=== PATIENT | female | born 1950 | race Caucasian/White ===

== ENCOUNTER → 2018-01-03 | Day surgery (SDC) | payer OTHER ==
[~2018-01-03] MED LIST: ASPIR 8181 MG PO; ATORVASTATIN CA20 MG PO; CEFADROXIL500 MG PO; LISINOPRIL-HCT1 EAC2 PO; OXYC1TAB9 PO; PROTONIX20 MG PO
== END | disposition home or self-care (01) ==
LOC: ADM 12-31 10:00 → CIR.AMB 06:07
DX: M75.41 Impingement syndrome of right shoulder (principal)